=== PATIENT | female | born 1990 | race African-American/Black ===

== ENCOUNTER 2018-08-14 18:10 | Emergency (ER) | payer OTHER ==
[~2018-08-14] VITALS: Ht 152.4 cm; Wt 45.4 kg
[2018-08-14] MEDS ORDERED: ONDANSETRON ODT 4 MG TAB.RAPDIS. PO ONE (18:30)
--- NOTE | 2018-08-14 18:43 | PHYS DOC ---
Past Medical History Past Medical History: No Pertinent History Past Surgical History: No Surgical History Alcohol Use: Occasionally Drug Use: None Adult General Chief Complaint Chief Complaint: NAUSEA/VOMITING/DIARRHA HPI HPI Patient is a 27 year old female who presents with nausea vomiting since today. She states that she threw up 3 times today. Patient states that she last tried heat at 1 PM today and she vomited. Patient states that after that happened she started feeling little dizziness. Patient's last menstrual. Was June 20 and she's been taking tests at home and they're negative. Patient denies any urinary symptoms or recent illness or cold symptoms at this time. She has no previous medical history and denies any surgical history. She has no known drug allergies. Review of Systems Review of Systems Constitutional: Denies fever or chills [] Eyes: Denies change in visual acuity, redness, or eye pain [] HENT: Denies nasal congestion or sore throat [] Respiratory: Denies cough or shortness of breath [] Cardiovascular: No additional information not addressed in HPI [] GI: Denies abdominal pain. Nausea, vomiting. Denies bloody stools or diarrhea [] : Denies dysuria or hematuria [] Musculoskeletal: Denies back pain or joint pain [] Integument: Denies rash or skin lesions [] Neurologic: Dizziness today. Denies headache, focal weakness or sensory changes [] All other systems were reviewed and found to be within normal limits, except as documented in this note. Current Medications Current Medications Current Medications Medications (Trade) Dose Ordered Sig/[facility] Start Time Stop Time Status Last Admin Dose Admin Ondansetron HCl (Zofran Odt) 4 mg 1X ONCE 08/14/18 18:30 08/14/18 18:31 DC Allergies Allergies Allergies Coded Allergies Type Severity Reaction Last Updated Verified No Known Drug Allergies 08/14/18 No Physical Exam Physical Exam Constitutional: Well developed, well nourished, no acute distress, non-toxic appearance. [] HENT: Normocephalic, atraumatic, bilateral external ears normal, oropharynx moist, no oral exudates, nose normal. [] Eyes: PERRLA, EOMI, conjunctiva normal, no discharge. [] Neck: Normal range of motion, no tenderness, supple, no stridor. [] Cardiovascular:Heart rate regular rhythm, no murmur [] Lungs & Thorax: Bilateral breath sounds clear to auscultation [] Abdomen: Bowel sounds normal, soft, no tenderness, no masses, no pulsatile masses. [] Skin: Warm, dry, no erythema, no rash. [] Back: No tenderness, no CVA tenderness. [] Extremities: No tenderness, no cyanosis, no clubbing, ROM intact, no edema. [] Neurologic: Alert and oriented X 3, normal motor function, normal sensory function, no focal deficits noted. [] Psychologic: Affect normal, judgement normal, mood normal. [] Current Patient Data Vital Signs Vital Signs Date Time Temp Pulse Resp B/P (MAP) Pulse Ox O2 Delivery O2 Flow Rate FiO2 08/14/18 18:16 98.0 93 14 118/75 (89) 100 Room Air 98.0 Lab Values Laboratory Tests Test 08/14/18 18:30 08/14/18 18:34 Urine Collection Type Void Urine Color Yellow Urine Clarity Clear Urine pH 6.5 Urine Specific [place] 1.025 Urine Protein Negative mg/dL (NEG-TRACE) Urine Glucose (UA) Negative mg/dL (NEG) Urine Ketones (Stick) Negative mg/dL (NEG) Urine Blood Negative (NEG) Urine Nitrite Negative (NEG) Urine Bilirubin Negative (NEG) Urine Urobilinogen Dipstick 1.0 mg/dL (0.2 mg/dL) Urine Leukocyte Esterase Negative (NEG) Urine RBC 0 /HPF (0-2) Urine WBC 11-20 /HPF (0-4) Urine Squamous Epithelial Cells Mod /LPF Urine Bacteria Moderate /HPF (0-FEW) Urine Mucus Mod /LPF Urine Test Negative (NEG) POC Urine HCG, Qualitative Hcg negative (Negative) EKG EKG [] Radiology/Procedures Radiology/Procedures [] Course & Med Decision Making Course & Med Decision Making Patient is a 27 year old female who presents with nausea vomiting since today. She states that she threw up 3 times today. Patient states that she last tried heat at 1 PM today and she vomited. Patient states that after that happened she started feeling little dizziness. Patient's last menstrual. Was June 20 and she's been taking tests at home and they're negative. Patient denies any urinary symptoms or recent illness or cold symptoms at this time. She has no previous medical history and denies any surgical history. She has no known drug allergies. Patient is alert and oriented. Patient abdomen is soft and nontender. Skin is pink warm and dry. Mucous membranes are moist. Patient is neurologically intact and denies any numbness or tingling. Heart rate is regular and no murmur. Lungs are clear to auscultation lobes. Patient has no extremity edema. Denies any pain. Tympanic membranes bilaterally are pearly white. Throat is pink and without exudates. Patient denies any nasal congestion. Patient denies cough. Patient's bowel signs 118/75, 14 respirations , 93 heart rate, 98.1 temp, 100% on room air. Patient is stable and in no distress. I did order a Zofran ODT for the patient in the ED. POC Glucose 69. Patient is not currently dizzy or lightheaded or diaphoretic or having signs of hypoglycemia but this could be part of the reason why she has dizzy spells and gets nauseated. Patient is given something to drink and eat in the ED. is negative. Urine does have some white blood cells and bacteria and I will treat the patient for urinary tract infection. I will also give her prescription for Zofran ODT. Patient will need to follow-up with her primary care within the next couple days. [] Dragon Disclaimer Dragon Disclaimer This electronic medical record was generated, in whole or in part, using a voice recognition dictation system. Departure Departure Impression: Primary Impression: Nausea & vomiting Disposition: 01 HOME, SELF-CARE Condition: STABLE Patient Instructions: Hypoglycemia, [id number], Nausea and Vomiting Additional Instructions: Eat at least 3 meals a day and drink fluids. Take medications as prescribed and follow up with a primary care physician within the next 48 hours. Scripts Ondansetron (ZOFRAN ODT) 4 Mg Tab.rapdis 4 MG PO Q6-8HRS PRN for NAUSEA/VOMITING, #20 TAB Prov: KLEVER SALMERON [employer] 08/14/18 Nitrofurantoin Monohyd/M-Cryst (MACROBID 100 MG CAPSULE) 100 Mg Capsule 1 CAP PO BID, #14 CAP Prov: KLEVER SALMERON [employer] 08/14/18 Problem Qualifiers Primary Impression: Nausea & vomiting Vomiting type: unspecified Vomiting Intractability: non-intractable Qualified Codes: R11.2 - Nausea with vomiting, unspecified KLEVER SALMERON [employer] Aug 14, 2018 18:43
[2018-08-14 18:47] LABS: BILIRUBIN,URINE NEGATIVE (NEG); CLARITY,URINE CLEAR; COLOR,URINE YELLOW; NITRITE,URINE NEGATIVE (NEG); PH,URINE 6.5; PROTEIN,URINE NEGATIVE (NEG-TRACE)
[2018-08-14 18:49] LABS: U PREG PATIENT NEGATIVE (NEG)
[2018-08-14 18:53] LABS: BACTERIA,URINE MODERATE /HPF (0-FEW); RBC,URINE 0 /HPF (0-2); SQUAMOUS EPITHELIAL CELL,UR MOD /LPF
[2018-08-14] MEDS ORDERED: ONDA4TAB10 PO (19:04)
[2018-08-14] MEDS ORDERED: NITR100C62 PO (19:04)
[2018-08-14 19:20] VITALS: BP 125/70
== END 2018-08-14 19:20 | disposition home or self-care (01) ==
LOC: ER 18:10
DX: R11.2 Nausea with vomiting, unspecified (principal); R42 Dizziness and giddiness
CPT/HCPCS: 81001; 81025; 82962; 87086; 99284; Q0162